=== PATIENT | female | born 1965 | race Caucasian/White ===

== ENCOUNTER 2020-04-21 13:00 | Outpatient (REF) | payer BC, SELFPAY ==
--- NOTE | 2020-04-21 13:06 | MM_ITS ---
EXAMINATION: MM DIAGNOSTIC DIGITAL BREAST TOMOSYNTHESIS, BILATERAL CLINICAL INFORMATION: Due for yearly. Also follow-up probable benign calcifications upper outer and upper inner right breast. No family history breast cancer. The lifetime risk of breast cancer based on the Tyrer-Cuzick Model is 7%. COMPARISON: Mammography: 03/08/2019, 08/29/2018, 01/19/2018, 01/16/2018 (BI-RADS 0), 11/10/2016. TECHNIQUE: Digital breast tomosynthesis is performed in both the craniocaudal and mediolateral oblique views along with computer-aided detection (CAD). Synthesized 2D images are generated from the tomosynthesis. Additional left MLO, magnification right CC, magnification right ML views are obtained. FINDINGS: There are scattered areas of fibroglandular density (ACR BI-RADS breast composition Category b). Parenchymal pattern is similar to prior exams. There is no developing density or interval mass or architectural abnormality. The axilla and skin contours are unremarkable. Right breast calcifications for follow-up are stable from prior diagnostic studies. No increasing calcifications or pleomorphic types or ductal distribution. Results are provided to the patient at time of visit by the technologist. MM/MM tomosynthesis diagnostic BI IMPRESSION: 1. No mammographic evidence of malignancy. 2. Right breast calcifications for follow-up are stable from prior diagnostic exams and now considered to be benign. ASSESSMENT: BI-RADS 2: Benign RECOMMENDATION: Routine annual mammography screening. This patient's information was entered into a reminder system with a target due date for their next mammogram.
== END 2020-04-21 13:01 | disposition home or self-care (01) ==
LOC: HO.MAMMO 13:00
PROVIDERS: PCP Internal Medicine; Visit Provider Internal Medicine
DX: R92.1 Mammographic calcification found on diagnostic imaging of breast (principal); Z12.31 Encounter for screening mammogram for malignant neoplasm of breast
CPT/HCPCS: 77062; 77066

== ENCOUNTER 2021-04-23 13:36 | Outpatient (REF) | payer BC, SELFPAY ==
--- NOTE | ~2021-04-23 | MM_ITS ---
EXAMINATION: MM SCREENING DIGITAL BREAST TOMOSYNTHESIS, BILATERAL CLINICAL INFORMATION: Screening. Asymptomatic. The lifetime risk of breast cancer based on the Tyrer-Cuzick Model is 13%. COMPARISON: Mammography: 04/21/2020, 03/08/2019, 08/29/2018, 01/19/2018, 01/16/2018 TECHNIQUE: Digital breast tomosynthesis is performed in both the craniocaudal and mediolateral oblique views along with computer-aided detection (CAD). Synthesized 2D images are generated from the tomosynthesis. FINDINGS: There are scattered areas of fibroglandular density (ACR BI-RADS breast composition Category b). There are no significant masses, abnormal calcifications, or other abnormalities. No significant changes from prior exams. MM/MM tomosynthesis screening BI IMPRESSION: No mammographic evidence of malignancy. ASSESSMENT: BI-RADS 1: Negative RECOMMENDATION: Routine annual mammography screening. This patient's information was entered into a reminder system with a target due date for their next mammogram.
== END 2021-04-23 13:37 | disposition home or self-care (01) ==
LOC: HO.MAMMO 13:36
PROVIDERS: Visit Provider Internal Medicine
DX: Z12.31 Encounter for screening mammogram for malignant neoplasm of breast (principal)
CPT/HCPCS: 77063; 77067

== ENCOUNTER 2022-04-29 09:49 | Outpatient (REF) | payer BC, SELFPAY ==
--- NOTE | ~2022-04-29 | MM_ITS ---
EXAMINATION: MM SCREENING DIGITAL BREAST TOMOSYNTHESIS, BILATERAL CLINICAL INFORMATION: Screening. Asymptomatic. The lifetime risk of breast cancer based on the Tyrer-Cuzick Model is 13.6%. COMPARISON: Mammography: 04/23/2021 and studies dating back to 12/24/2007. TECHNIQUE: Digital breast tomosynthesis is performed in both the craniocaudal and mediolateral oblique views along with computer-aided detection (CAD). Synthesized 2D images are generated from the tomosynthesis. FINDINGS: The breasts are heterogeneously dense, which may obscure small masses (ACR BI-RADS breast composition Category c). There is essentially a stable parenchymal pattern bilaterally with a developing circumscribed density about the central aspect of the right breast approximately 4 cm from the nipple. This measures approximately 5 x 4 mm in size. Targeted ultrasound evaluation is recommended. MM/MM tomosynthesis screening BI IMPRESSION: Circumscribed developing right breast density for further evaluation with ultrasound. ASSESSMENT: BI-RADS 0: Incomplete - Need Additional Imaging Evaluation. RECOMMENDATION: Targeted right breast ultrasound. This patient's information was entered into a reminder system with a target due date for their next mammogram.
== END 2022-04-29 09:50 | disposition home or self-care (01) ==
LOC: HO.MAMMO 09:49
PROVIDERS: PCP Internal Medicine; Visit Provider Internal Medicine
DX: Z12.31 Encounter for screening mammogram for malignant neoplasm of breast (principal)
CPT/HCPCS: 77063; 77067

== ENCOUNTER 2022-05-04 15:14 | Outpatient (REF) | payer BC, SELFPAY ==
--- NOTE | ~2022-05-04 | US_ITS ---
EXAMINATION: US DIAGNOSTIC ULTRASOUND BREAST, RIGHT CLINICAL INFORMATION: Recall from screening for small circumscribed nodule central anterior breast approximately 5 x 4 mm. COMPARISON: Mammography 04/29/2022, 04/23/2021, 04/21/2020. TECHNIQUE: Ultrasound right breast is targeted to the upper anterior breast. FINDINGS: There is a benign simple cyst 12:00 position approximately 2 cm from nipple measuring 4 x 3 mm. Corresponding to finding on mammography. There is mild increased through-transmission of sound and no associated color flow. No solid mass or architectural abnormality. Results are discussed with the patient at time of visit. US/US breast RT limited IMPRESSION: -Small simple cyst 12:00 position corresponding to finding on mammography. ASSESSMENT: BI-RADS 2: Benign RECOMMENDATION: Routine annual mammography screening. This patient's information was entered into a reminder system with a target due date for their next mammogram.
== END 2022-05-04 15:15 | disposition home or self-care (01) ==
LOC: HO.MAMMO 15:14
PROVIDERS: PCP Internal Medicine; Visit Provider Internal Medicine
DX: R92.2 Inconclusive mammogram (principal)
CPT/HCPCS: 76642

== ENCOUNTER → 2022-08-18 15:12 | Outpatient (BNVA) | payer BC, SELFPAY | PROVIDERS: PCP Internal Medicine; Visit Provider Internal Medicine | DX: Z13.89 Encounter for screening for other disorder (principal) ==

== ENCOUNTER → 2023-05-04 08:30 | Outpatient (BNV) | payer OTHER, SELFPAY | PROVIDERS: PCP Internal Medicine; Visit Provider Radiology Diagnostic Radiology | DX: Z12.31 Encounter for screening mammogram for malignant neoplasm of breast (principal) | CPT/HCPCS: 77063; 77067 ==

== ENCOUNTER 2023-05-04 08:56 | Outpatient (REF) | payer OTHER, SELFPAY | END 2023-05-04 08:57 | disposition home or self-care (01) | LOC: HO.MAMMO 08:56 | PROVIDERS: PCP Internal Medicine; Visit Provider Internal Medicine | DX: Z12.31 Encounter for screening mammogram for malignant neoplasm of breast (principal) | CPT/HCPCS: 77063; 77067 ==

== ENCOUNTER 2023-06-06 12:23 | Outpatient (AMB) | payer OTHER, SELFPAY ==
[2023-06-06 12:30] VITALS: BP 134/68; PULSE 98; O2SAT 99; BMI 34.0
--- NOTE | 2023-06-06 12:30 | A.OFFPC_ITS ---
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: No Allergies cat dander Allergy (Unknown, Verified 06/06/23 12:31) itchy throat house dust Allergy (Unknown, Verified 06/06/23 12:31) itchy throat Medication List - Last Reconciled 06/06/23 by Rosalie Carroll MD ascorbate calcium (vitamin C) 500 mg PO DAILY cholecalciferol (vitamin D3) 25 mcg PO DAILY fluticasone propionate 50 mcg/actuation 2 sprays intranasal DAILY loratadine-pseudoephedrine 5-120 mg ER (Claritin-D 12 Hour) 1 tab PO Q12H peg 3350-electrolytes 236-22.74-6.74 -5.86 gram (Golytely) 240 mL PO Q10M Tobacco use date assessed: 06/06/23 Dental Screening Dental Screen Date: 06/06/23 Did you have a dental visit in the last 12 months?: Yes Did you have a dental problem in the last 6 months where you did not have access to dental care?: No Was dental information given to patient?: Patient has dentist HPI Annual Exam HPI Details 58-year-old obese female with a history of iron deficiency anemia GERD tubular adenoma of the colon mixed incontinence coming in for physical exam last seen in May 2022 for physical exam. 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 Patient's last blood work was done in September 2022 follow-up blood work for elevated liver function test. With that blood work last May noted elevated blood sugar at 101 with no anemia. patient seperated recently, no insurance. divorce process. 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 will be refer to urology. has some situational depression but declined referral for counselling [facility] Medical History (Updated 06/06/23 @ 12:58 by Rosalie Carroll MD) Fracture of thumb, left, closed Obesity (BMI 30-39.9) Vitamin D deficiency GERD (gastroesophageal reflux disease) Iron deficiency anemia Surgical History (Updated 04/28/20 @ 07:24 by Reny Giron) History of tonsillectomy History of tubal ligation Family History (Updated 06/02/22 @ 12:48 by Rosalie Carroll MD) Father Lung cancer Smoker Mother Acute CVA (cerebrovascular accident) Diabetes H/O cardiac radiofrequency ablation Sister Diabetes Myocardial infarction Breast cancer Sister No problems noted. Brother Myocardial infarction Social History (Updated 01/30/21 @ 16:52 by Rosalie Carroll MD) Housing: House Alcohol intake: never Patient Tobacco Use Status: Former Tobacco user Years Smoked: stopped 1985 e-Cigarette/Vaping Use: Never Used Second Hand Smoke Exposure: No Current occupational status: employed Cognitive needs: No Hearing needs: No Vision needs: Yes Questionnaire PHQ-9 Over the last 2 weeks, how often have you been bothered by any of the following problems? 1. Little interest or pleasure in doing things: not at all 2. Feeling down, depressed, or hopeless: not at all 3. Trouble falling or staying asleep, or sleeping too much: not at all 4. Feeling tired or having little energy: not at all 5. Poor appetite or overeating: not at all 6. Feeling bad about yourself - or that you are a failure or have let yourself or your family down: not at all 7. Trouble concentrating on things, such as reading the newspaper or watching television: not at all 8. Moving or speaking so slowly that other people could have noticed. Or the opposite - being so fidgety or restless that you have been moving around a lot more than usual: not at all 9. Thoughts that you would be better off or of hurting yourself in some way: not at all Total score: 0 Depression Screening Interpretation: Negative Depression Screening Done: Yes Source: Developed by Drs. Bradley Ford, Marina Yu, Antoine Young and colleagues, with an educational vianney from [employer]. Thrive Questionnaire Date Thrive assessed: 06/02/22 AUDIT C Alcohol Use Questionnaire (AUDIT-C) 1. How often do you have a drink containing alcohol?: Monthly or less 2. How many drinks containing alcohol do you have on a typical day when you are drinking?: 1 or 2 3. How often do you have six or more drinks on one occasion?: Never Total Score: 1 ZITA-7 AMB Questionnaire ZITA-7 Date ZITA - 7 assessed: 06/06/23 Feeling nervous, anxious, or on edge: 0 = Not at all Not being able to stop or control worryin = Not at all Worrying too much about different things: 0 = Not at all Trouble relaxin = Not at all Being so restless that it is hard to sit still: 0 = Not at all Becoming easily annoyed or irritable: 0 = Not at all Feeling afraid as if something awful might happen: 0 = Not at all Total ZITA-7 score (0-4 normal; 5-9 mild; 10-14 moderate; 15-21 severe): 0 Source: Developed by Drs. Bradley Ford, Marina Yu, Antoine Young and colleagues, with an educational vianney from [employer]. Review of Systems Const Denies poor appetite and Denies weakness Eyes Denies no additional complaints ENT Reports Normal hearing present, Denies dizziness, Denies nasal congestion, Denies tinnitus and Denies sore throat Card Denies chest pain, Denies syncope, Denies rapid heart rate and Denies dyspnea Resp Denies cough and Denies dyspnea GI Denies change in stool character, Reports constipation, Denies diarrhea, Denies nausea and Denies vomiting Denies urinary frequency, Denies difficulty voiding and Denies dysuria Neuro Reports Normal hearing present, Denies confusion, Denies dizziness, Denies syncope and Denies weakness Psych Denies confusion Physical exam (Primary Care) Vital Signs: Last Vital Signs Pulse 98 06/06/23 12:30 BP 134/68 06/06/23 12:30 Pulse Ox 99 06/06/23 12:30 Oxygen Delivery Method Room Air 06/06/23 12:30 BMI result Body Mass Index 34.0 Tobacco/Smoking Status: Tobacco use Status Tobacco use date assessed 06/06/23 06/06/23 12:32 Patient Tobacco Use Status Former Tobacco user 06/06/23 12:32 e-Cigarette/Vaping Use Never Used 06/06/23 12:32 PHQ-9: PHQ-9 Score PHQ-9: Total score 0 06/06/23 12:34 Depression Screening Interpretation: Negative Thrive Assessment: Date of Thrive Assessment Date Thrive assessed 06/02/22 06/06/23 12:32 Const General: No confusion Orientation/consciousness: No confusion HENMT Head: Yes normocephalic Ears: external ears normal and TM's normal bilaterally Face and sinus: Yes normal facial exam Mouth: moist mucous membranes Throat: Yes tonsils normal Eyes Conjunctivae: conjunctivae normal Pupils: Equal, round and reactive pupils present and Pupil accommodation reflex normal Direct Ophthalmoscopy: normal light reflex Neck Neck: No lymphadenopathy Thyroid: Thyroid normal Chest Chest palpation & inspection: normal inspection of the chest Resp Effort & Inspection: normal respiratory effort and no audible wheezes Auscultation: clear to auscultation bilaterally, no crackles, no wheezes and lung sounds not diminished Cardio Rate: regular rate Rhythm: regular rhythm Peripheral pulses: radial pulses present and dorsalis pedis present GI Other: guaiac negative Palpation (GI): no masses Auscultation: normal bowel sounds and normoactive bowel sounds Skin General skin exam: no rashes or lesions noted Rashes: no rashes Neuro General: No confusion Cranial nerves: Yes Equal, round and reactive pupils present and Yes Normal hearing present Cognition (Neuro): normal cognition Gait exam (Neuro): Normal gait present Motor exam (neuro): 5/5 motor strength present throughout Deep tendon reflexes (DTR's): Right brachioradialis reflex intensity grade: 2+, Left brachioradialis reflex intensity grade: 2+, Right patellar reflex intensity grade: 2+ and Left patellar reflex intensity grade: 2+ Extrem General: No edema Assessment and Plan Assessment & Plan (1) Annual physical exam: Code(s): Z00.00 - Encounter for general adult medical examination without abnormal findings (2) Obesity (BMI 30-39.9): Code(s): E66.9 - Obesity, unspecified Plan: Diet and exercise (3) GERD (gastroesophageal reflux disease): Comment: 13-year-old gastritis Code(s): K21.9 - Gastro-esophageal reflux disease without esophagitis Plan: GERD plan (4) Tubular adenoma of colon: Code(s): D12.6 - Benign neoplasm of colon, unspecified Plan: Patient has met with Gastroenterology and awaiting schedule (5) Impaired glucose tolerance: Code(s): R73.02 - Impaired glucose tolerance (oral) Plan: Decrease the amount of carbohydrate intake, pasta, bread, rice and potatoes are all sugar and that is aside from all the sweet stuff, remember that fruits are good but they are Sweet also. (6) Mixed incontinence: Code(s): N39.46 - Mixed incontinence (7) Onychomycosis: Code(s): B35.1 - Tinea unguium Orders: Orders Hemoglobin A1c Today R73.02 - Impaired glucose tolerance (oral) Complete Blood Count Auto Diff Today D50.9 - Iron deficiency anemia, unspecified IRON PROFILE Today D50.9 - Iron deficiency anemia, unspecified Vitamin B12 and Folate Today D50.9 - Iron deficiency anemia, unspecified Vitamin D 25-OH Total Today K21.9 - Gastro-esophageal reflux disease without esophagitis Lipid Panel Today E78.00 - Pure hypercholesterolemia, unspecified, K21.9 - Gastro-esophageal reflux disease without esophagitis Thyroid Stimulating Hormone Today K21.9 - Gastro-esophageal reflux disease without esophagitis Comprehensive Met. Panel Today R73.02 - Impaired glucose tolerance (oral) Ferritin Today D50.9 - Iron deficiency anemia, unspecified Reticulocyte Count Today D50.9 - Iron deficiency anemia, unspecified Free T4 (Free Thyroxine) Today K21.9 - Gastro-esophageal reflux disease without esophagitis Medications: New terbinafine HCl 250 mg PO DAILY 12 weeks 84 tabs 1RF B35.1 - Tinea unguium Coding Level of Care Code Est Pt Prev Care 40-64y(55374) Diagnoses Annual physical exam Z00.00 Obesity (BMI 30-39.9) E66.9 GERD (gastroesophageal reflux disease) K21.9 Tubular adenoma of colon D12.6 Impaired glucose tolerance R73.02 Mixed incontinence N39.46 Onychomycosis B35.1
== END 2023-06-06 13:10 | disposition home or self-care (01) ==
PROVIDERS: Visit Provider Internal Medicine
DX: Z00.00 Encounter for general adult medical examination without abnormal findings (principal); E66.9 Obesity, unspecified; Z68.34 Body mass index [BMI] 34.0-34.9, adult; K21.9 Gastro-esophageal reflux disease without esophagitis; D12.6 Benign neoplasm of colon, unspecified; R73.02 Impaired glucose tolerance (oral); N39.46 Mixed incontinence; B35.1 Tinea unguium
CPT/HCPCS: 99396

== ENCOUNTER 2023-09-28 10:03 | Outpatient (AMB) | payer OTHER, SELFPAY ==
[2023-09-28 10:06] VITALS: BP 134/68; PULSE 92; O2SAT 97; BMI 34.4
--- NOTE | 2023-09-28 10:06 | MHC.PC.OV ---
Vital Signs 09/28/23 10:06 Height 5 ft 2 in Weight 188 lb BMI 34.4 BP 134/68 Blood Pressure Location Lt brachial Position Sitting Pulse 92 Pulse Source Pulse Oximeter Pulse Oximetry (%) 97 Oxygen Delivery Method Room Air Intake Visit Reasons: Sinus infection Allergies cat dander Allergy (Unknown, Verified 09/28/23 10:07) itchy throat house dust Allergy (Unknown, Verified 09/28/23 10:07) itchy throat Medication List - Last Reconciled 09/28/23 by Rosalie Carroll MD amoxicillin-pot clavulanate 875-125 mg 1 tab PO BID ascorbate calcium (vitamin C) 500 mg PO DAILY cholecalciferol (vitamin D3) 25 mcg PO DAILY fluticasone propionate 50 mcg/actuation 2 sprays intranasal DAILY loratadine-pseudoephedrine 5-120 mg ER (Claritin-D 12 Hour) 1 tab PO Q12H peg 3350-electrolytes 236-22.74-6.74 -5.86 gram (Golytely) 240 mL PO Q10M terbinafine HCl 250 mg PO DAILY 12 weeks Tobacco use date assessed: 06/06/23 Dental Screening Dental Screen Date: 09/28/23 Did you have a dental visit in the last 12 months?: Yes Did you have a dental problem in the last 6 months where you did not have access to dental care?: No Was dental information given to patient?: Patient has dentist HPI Sinus infection HPI Details 58-year-old obese female with impaired glucose tolerance GERD last seen in May 2023 coming in for an urgent visit. congestion 2months, congestion, takes mucinex congestion PFSH Medical History (Updated 09/28/23 @ 10:20 by Rosalie Carroll MD) Fracture of thumb, left, closed Obesity (BMI 30-39.9) Vitamin D deficiency GERD (gastroesophageal reflux disease) Iron deficiency anemia Surgical History (Updated 04/28/20 @ 07:24 by Reny Giron) History of tonsillectomy History of tubal ligation Family History (Updated 06/02/22 @ 12:48 by Rosalie Carroll MD) Father Lung cancer Smoker Mother Acute CVA (cerebrovascular accident) Diabetes H/O cardiac radiofrequency ablation Sister Diabetes Myocardial infarction Breast cancer Sister No problems noted. Brother Myocardial infarction Social History (Updated 01/30/21 @ 16:52 by Rosalie Carroll MD) Housing: House Alcohol intake: never Patient Tobacco Use Status: Former Tobacco user Tobacco use type: Cigarette Years Smoked: stopped 1986 e-Cigarette/Vaping Use: Never Used Second Hand Smoke Exposure: No Current occupational status: employed Cognitive needs: No Hearing needs: No Vision needs: Yes Questionnaire PHQ-9 Over the last 2 weeks, how often have you been bothered by any of the following problems? 1. Little interest or pleasure in doing things: not at all 2. Feeling down, depressed, or hopeless: not at all 3. Trouble falling or staying asleep, or sleeping too much: not at all 4. Feeling tired or having little energy: not at all 5. Poor appetite or overeating: not at all 6. Feeling bad about yourself - or that you are a failure or have let yourself or your family down: not at all 7. Trouble concentrating on things, such as reading the newspaper or watching television: not at all 8. Moving or speaking so slowly that other people could have noticed. Or the opposite - being so fidgety or restless that you have been moving around a lot more than usual: not at all 9. Thoughts that you would be better off or of hurting yourself in some way: not at all Total score: 0 Depression Screening Interpretation: Negative Depression Screening Done: Yes Source: Developed by Drs. Bradley Ford, Marina Yu, Antoine Young and colleagues, with an educational vianney from [employer]. Thrive Questionnaire Date Thrive assessed: 09/28/23 I am a: Patient What is your living situation today?: I have a steady place to live Within the past 12 months, did the food you bought not last and you didn't have the money to get more?: Never true Within the past 12 months, did you worry whether your food would run out before you got money to buy more?: Never true Do you have trouble paying for medicines?: No Do you have trouble getting transportation to medical appointments?: No Do you have trouble paying your heating and electricity bill?: No Do you have trouble taking care of your child, family member or friend?: No Do you have trouble with day-to-day activities such as bathing, preparing meals, shopping, managing finances, etc.?: No Are you currently unemployed and looking for a job?: No Are you interested in more education?: No Currently or been in a relationship where the following occur: no concerns reported THRIVE Score: 0 AUDIT C Alcohol Use Questionnaire (AUDIT-C) 1. How often do you have a drink containing alcohol?: Monthly or less 2. How many drinks containing alcohol do you have on a typical day when you are drinking?: 1 or 2 3. How often do you have six or more drinks on one occasion?: Never Total Score: 1 ZITA-7 AMB Questionnaire ZITA-7 Date ZITA - 7 assessed: 06/06/23 Source: Developed by Drs. Bradley Ford, Marina Yu, Antoine Young and colleagues, with an educational vianney from [employer]. Physical exam (Primary Care) Vital Signs: Last Vital Signs Pulse 92 09/28/23 10:06 BP 134/68 09/28/23 10:06 Pulse Ox 97 09/28/23 10:06 Oxygen Delivery Method Room Air 09/28/23 10:06 BMI result Body Mass Index 34.4 Tobacco/Smoking Status: Tobacco use Status Tobacco use date assessed 06/06/23 09/28/23 10:13 Patient Tobacco Use Status Former Tobacco user 09/28/23 10:13 Tobacco use type Cigarette 09/28/23 10:13 e-Cigarette/Vaping Use Never Used 09/28/23 10:13 PHQ-9: PHQ-9 Score PHQ-9: Total score 0 09/28/23 10:18 Depression Screening Interpretation: Negative Thrive Assessment: Date of Thrive Assessment Date Thrive assessed 09/28/23 09/28/23 10:13 Currently or been in a relationship where the following occur: no concerns reported Const General: alert; No acute distress Eyes Conjunctivae: conjunctivae normal Resp Auscultation: clear to auscultation bilaterally Cardio Rate: regular rate Rhythm: regular rhythm GI Inspection: Yes normal to inspection Extrem General: Yes normal to inspection and No edema Assessment and Plan Assessment & Plan (1) Sinusitis: Code(s): J32.9 - Chronic sinusitis, unspecified Plan: antibiotic prescription sent and astepro samples sent Medications: New amoxicillin-pot clavulanate 875-125 mg 1 tab PO BID 20 tabs 0RF J32.9 - Chronic sinusitis, unspecified Coding Level of Care Code Est Pt Level 3 (19176) Diagnoses Sinusitis J32.9
== END 2023-09-28 10:34 | disposition home or self-care (01) ==
PROVIDERS: PCP Internal Medicine; Visit Provider Internal Medicine
DX: J32.9 Chronic sinusitis, unspecified (principal)
CPT/HCPCS: 99213

== ENCOUNTER 2024-05-08 08:15 | Outpatient (REF) | payer OTHER, SELFPAY | END 2024-05-08 08:16 | disposition home or self-care (01) | LOC: HO.MAMMO 08:15 | PROVIDERS: Absent Provider Obstetrics & Gynecology; PCP Internal Medicine; Visit Provider Internal Medicine | DX: Z12.31 Encounter for screening mammogram for malignant neoplasm of breast (principal) | CPT/HCPCS: 77063; 77067 ==

== ENCOUNTER → 2024-05-08 08:30 | Outpatient (BNV) | payer OTHER, SELFPAY | PROVIDERS: Absent Provider Obstetrics & Gynecology; PCP Internal Medicine; Visit Provider Internal Medicine | DX: Z12.31 Encounter for screening mammogram for malignant neoplasm of breast (principal) | CPT/HCPCS: 77063; 77067 ==

== ENCOUNTER 2024-06-07 12:23 | Outpatient (AMB) | payer OTHER, SELFPAY ==
--- NOTE | 2024-06-07 12:28 | A.OFFPC_ITS ---
Vital Signs 06/07/24 12:30 Height 5 ft 2 in Weight 185 lb BMI 33.8 BP 120/68 Blood Pressure Location Lt brachial Position Sitting Pulse 86 Pulse Source Pulse Oximeter Pulse Oximetry (%) 97 Oxygen Delivery Method Room Air Intake Visit Reasons: pe Intake Note: Patient here for a physical exam Ski Maker [place] Required: No Accompanied by: Self / Same As Patient Allergies cat dander Allergy (Unknown, Verified 06/07/24 12:32) itchy throat house dust Allergy (Unknown, Verified 06/07/24 12:32) itchy throat Medication List - Last Reconciled 06/07/24 by Rosalie Carroll MD ascorbate calcium (vitamin C) 500 mg PO DAILY cholecalciferol (vitamin D3) 25 mcg PO DAILY Tobacco use date assessed: 06/07/24 Dental Screening Dental Screen Date: 06/07/24 Did you have a dental visit in the last 12 months?: No Did you have a dental problem in the last 6 months where you did not have access to dental care?: No Was dental information given to patient?: Patient has dentist HPI pe HPI Details The patient is a 59-year-old female presenting with diarrhea, headaches, sinus congestion, and concerns related to weight management. She re ports experiencing a stomach bug several days ago, but she did not have vomiting; however, she did have diarrhea. She experienced chills and headaches during that period but currently denies any fever. The diarrhea has resolved, though she is taking precautions with her diet to prevent its recurrence. The patient has been facing recurring headaches and suspects they may be related to sinus congestion, though no formal diagnosis has been made. The patient's family history includes a father with lung cancer and a brother who suffered a heart attack. Another female relative had kidney issues in the past, which led to significant weight loss. The patient herself has a history of consuming a healthy diet and strives to manage her weight effectively. The patient underwent a mammogram on June 08, but it was deemed incomplete, and she is scheduled for further imaging of the right breast on June 20. There is an upcoming colonoscopy, pending insurance confirmation. She is mindful of staying hydrated, consuming vitamin D and C supplements, and maintaining a healthy balance of food intake despite a recent dip in appetite and energy levels. The patient was concerned about potential anemia but had no recent blood work done to confirm this suspicion. - Follows a healthy diet, high in hydrat ion and adjusted to manage diarrhea - Scheduled mammogram follow-up for kristi t breast imaging - Pending colonoscopy scheduling - Vitamin D and C supplementation - No current vaccination updates discuss ed - Marital status: - No alcohol consumption - Former smoker, currently abstaining - Active attempts to manage weight and d iet - Experiences difficulty with sleep, pot entially insomnia - High fluid intake preferred, often dri nks several bottles of water daily - Occupation not explicitly mentioned - Skepticism concerning weight loss and emotional well-being with stress patterns - Gastrointestinal: Reports previous jaz rrhea, denies current nausea or vomiting - Neurological: Reports headaches, insom raphael - Respiratory: Denies shortness of breat h, chest pains, ongoing respiratory issues - Cardiovascular: Denies dizziness, sync ope, heartburn present but not weekly - Genitourinary: Denies nocturia - Ophthalmology: Recent regular eye exam , reports no specific issues besides common headaches PFSH Medical History (Updated 09/28/23 @ 10:20 by Rosalie Carroll MD) Fracture of thumb, left, closed Obesity (BMI 30-39.9) Vitamin D deficiency GERD (gastroesophageal reflux disease) Iron deficiency anemia Surgical History History of tonsillectomy History of tubal ligation Family History (Updated 06/07/24 @ 12:43 by Rosalie Carroll MD) Father Lung cancer Smoker Mother Acute CVA (cerebrovascular accident) Diabetes H/O cardiac radiofrequency ablation Sister Diabetes Breast cancer Paget's disease of bone Sister No problems noted. Brother Myocardial infarction Social History Housing: House Alcohol intake: never Patient Tobacco Use Status: Former Tobacco user Tobacco use type: Cigarette Years Smoked: stopped 1985 e-Cigarette/Vaping Use: Never Used Second Hand Smoke Exposure: No service: No Current occupational status: employed Current occupational exposures/hazards: No Cognitive needs: No Hearing needs: No Vision needs: Yes Questionnaire PHQ-9 Over the last 2 weeks, how often have you been bothered by any of the following problems? 1. Little interest or pleasure in doing things: not at all 2. Feeling down, depressed, or hopeless: not at all 3. Trouble falling or staying asleep, or sleeping too much: several days 4. Feeling tired or having little energy: not at all 5. Poor appetite or overeating: not at all 6. Feeling bad about yourself - or that you are a failure or have let yourself or your family down: not at all 7. Trouble concentrating on things, such as reading the newspaper or watching television: not at all 8. Moving or speaking so slowly that other people could have noticed. Or the opposite - being so fidgety or restless that you have been moving around a lot more than usual: not at all 9. Thoughts that you would be better off or of hurting yourself in some way: not at all Total score: 1 Source: Developed by Drs. Bradley Ford, Marina Yu, Antoine Young and colleagues, with an educational vianney from [employer]. Thrive Questionnaire Date Thrive assessed: 06/07/24 I am a: Patient What is your living situation today?: I have a steady place to live Within the past 12 months, did the food you bought not last and you didn't have the money to get more?: Never true Within the past 12 months, did you worry whether your food would run out before you got money to buy more?: Never true Do you have trouble paying for medicines?: No Do you have trouble getting transportation to medical appointments?: No Do you have trouble paying your heating and electricity bill?: No Do you have trouble taking care of your child, family member or friend?: No Do you have trouble with day-to-day activities such as bathing, preparing meals, shopping, managing finances, etc.?: No Are you currently unemployed and looking for a job?: No Are you interested in more education?: No Please select the resources that you would like help with: None Currently or been in a relationship where the following occur: No concerns reported THRIVE Score: 0 AUDIT C Alcohol Use Questionnaire (AUDIT-C) 1. How often do you have a drink containing alcohol?: Never Total Score: 0 ZITA-7 AMB Questionnaire ZITA-7 Date ZITA - 7 assessed: 06/07/24 Feeling nervous, anxious, or on edge: 0 = Not at all Not being able to stop or control worryin = Not at all Worrying too much about different things: 0 = Not at all Trouble relaxin = Not at all Being so restless that it is hard to sit still: 0 = Not at all Becoming easily annoyed or irritable: 0 = Not at all Feeling afraid as if something awful might happen: 0 = Not at all Total ZITA-7 score (0-4 normal; 5-9 mild; 10-14 moderate; 15-21 severe): 0 Source: Developed by Drs. Bradley Ford, Marina Yu, Antoine Young and colleagues, with an educational vianney from [employer]. Review of Systems Const Denies poor appetite and Denies weakness Eyes Denies no additional complaints ENT Reports Normal hearing present, Denies dizziness, Denies nasal congestion, Denies tinnitus and Denies sore throat Card Denies chest pain, Denies syncope, Denies rapid heart rate and Denies dyspnea Resp Denies cough and Denies dyspnea GI Denies change in stool character, Reports constipation, Denies diarrhea, Denies nausea and Denies vomiting Denies urinary frequency, Denies difficulty voiding and Denies dysuria Neuro Reports Normal hearing present, Denies confusion, Denies dizziness, Denies syncope and Denies weakness Psych Denies confusion Physical exam (Primary Care) Vital Signs: Last Vital Signs Pulse 86 06/07/24 12:30 BP 120/68 06/07/24 12:30 Pulse Ox 97 06/07/24 12:30 Oxygen Delivery Method Room Air 06/07/24 12:30 BMI result Body Mass Index 33.8 Tobacco/Smoking Status: Tobacco use Status Tobacco use date assessed 06/07/24 06/07/24 12:35 Patient Tobacco Use Status Former Tobacco user 06/07/24 12:35 Tobacco use type Cigarette 06/07/24 12:35 e-Cigarette/Vaping Use Never Used 06/07/24 12:35 PHQ-9: PHQ-9 Score PHQ-9: Total score 1 06/07/24 12:40 Thrive Assessment: Date of Thrive Assessment Date Thrive assessed 06/07/24 06/07/24 12:35 Currently or been in a relationship where the following occur: No concerns reported Const General: No confusion Orientation/consciousness: No confusion HENMT Head: Yes normocephalic Ears: external ears normal and TM's normal bilaterally Face and sinus: Yes normal facial exam Mouth: moist mucous membranes Throat: Yes tonsils normal Eyes Conjunctivae: conjunctivae normal Pupils: Equal, round and reactive pupils present and Pupil accommodation reflex normal Direct Ophthalmoscopy: normal light reflex Neck Neck: No lymphadenopathy Thyroid: Thyroid normal Chest Chest palpation & inspection: normal inspection of the chest Resp Effort & Inspection: normal respiratory effort and no audible wheezes Auscultation: clear to auscultation bilaterally, no crackles, no wheezes and lung sounds not diminished Cardio Rate: regular rate Rhythm: regular rhythm Peripheral pulses: radial pulses present and dorsalis pedis present GI Palpation (GI): no masses Auscultation: normal bowel sounds and normoactive bowel sounds Rectal Exam - Female: deferred Skin General skin exam: no rashes or lesions noted Rashes: no rashes Neuro General: No confusion Cranial nerves: Yes Equal, round and reactive pupils present and Yes Normal hearing present Cognition (Neuro): normal cognition Gait exam (Neuro): Normal gait present Motor exam (neuro): 5/5 motor strength present throughout Deep tendon reflexes (DTR's): Right brachioradialis reflex intensity grade: 2+, Left brachioradialis reflex intensity grade: 2+, Right patellar reflex intensity grade: 2+ and Left patellar reflex intensity grade: 2+ Extrem General: No edema Coding Level of Care Code Est Pt Prev Care 40-64y(39398) Diagnoses Annual physical exam Z00.00 Obesity (BMI 30-39.9) E66.9 GERD (gastroesophageal reflux disease) K21.9 Iron deficiency anemia D50.9 Tubular adenoma of colon D12.6 Impaired glucose tolerance R73.02 Assessment & Plan Assessment & Plan (1) Annual physical exam: Code(s): Z00.00 - Encounter for general adult medical examination without abnormal findings Category: Medical (2) Obesity (BMI 30-39.9): Code(s): E66.9 - Obesity, unspecified Category: Medical (3) GERD (gastroesophageal reflux disease): Comment: 13-year-old gastritis Code(s): K21.9 - Gastro-esophageal reflux disease without esophagitis Category: Medical (4) Iron deficiency anemia: Code(s): D50.9 - Iron deficiency anemia, unspecified Category: Medical (5) Tubular adenoma of colon: Code(s): D12.6 - Benign neoplasm of colon, unspecified Category: Medical (6) Impaired glucose tolerance: Code(s): R73.02 - Impaired glucose tolerance (oral) Category: Medical Plan - Fasting blood work ordered to check for potential anemia and other basal metabolic panel tests - Referral to tip inserter for colonoscopy scheduling - Follow-up for mammogram results and assessment after new imaging to rule out breast concerns - Recommendation for adequate hydration and balanced diet to manage gastrointestinal symptoms - Monitor weight levels and emotional stress that could contribute to physical symptoms - Encouragement to continue vitamin supplementation and maintain healthy lifestyle practices During our discussion, I addressed the patient's symptoms and the importance of maintaining her current health practices. We discussed the likely infectious origin of her gastrointestinal discomfort and potential postnasal drip contributing to her headaches. Vitamin deficiencies, especially due to eating patterns, were considered, thus reinforcing the importance of the scheduled blood work. I explained the ongoing need to monitor her breast health through scheduled mammograms and address the incomplete imaging. Colonoscopy referrals were outlined as a priority following insurance verification. We outlined preventative strategies against the flu, COVID-19, and RSV to promote long-term respiratory health. - Maintain a balanced diet and modify food intake if gastrointestinal symptoms reappear - Continue with current vitamin D and C supplements - Monitor for any new or worsening symptoms, especially headaches and gastrointestinal issues - Stay hydrated with adequate water consumption daily - Attend scheduled mammogram follow-up on June 20 - Await scheduling for a colonoscopy appointment - Complete fasting blood work as scheduled - Routine preventive measures against flu, COVID-19, and RSV are advised - Return for follow-up appointments and contact me if there are any concerns or changes in symptoms Orders: Orders Comprehensive Met. Panel Today D50.9 - Iron deficiency anemia, unspecified Ferritin Today D50.9 - Iron deficiency anemia, unspecified Lipid Panel Today D50.9 - Iron deficiency anemia, unspecified, E78.00 - Pure hypercholesterolemia, unspecified Thyroid Stimulating Hormone Today D50.9 - Iron deficiency anemia, unspecified Vitamin B12 and Folate Today D50.9 - Iron deficiency anemia, unspecified Reticulocyte Count Today D50.9 - Iron deficiency anemia, unspecified Complete Blood Count Auto Diff Today D50.9 - Iron deficiency anemia, unspecified IRON PROFILE Today D50.9 - Iron deficiency anemia, unspecified Free T4 (Free Thyroxine) Today D50.9 - Iron deficiency anemia, unspecified Hemoglobin A1c Today D50.9 - Iron deficiency anemia, unspecified Vitamin D 25-OH Total Today D50.9 - Iron deficiency anemia, unspecified Referrals Gastroenterology Referral D12.6 - Benign neoplasm of colon, unspecified
[2024-06-07 12:30] VITALS: BP 120/68; PULSE 86; O2SAT 97; BMI 33.8
== END 2024-06-07 13:03 | disposition home or self-care (01) ==
PROVIDERS: PCP Internal Medicine; Visit Provider Internal Medicine
DX: Z00.00 Encounter for general adult medical examination without abnormal findings (principal); E66.9 Obesity, unspecified; Z68.33 Body mass index [BMI] 33.0-33.9, adult; K21.9 Gastro-esophageal reflux disease without esophagitis; D50.9 Iron deficiency anemia, unspecified; D12.6 Benign neoplasm of colon, unspecified; R73.02 Impaired glucose tolerance (oral)

== ENCOUNTER → 2024-06-07 12:23 | Outpatient (BNVA) | payer OTHER, SELFPAY | PROVIDERS: PCP Internal Medicine; Visit Provider Internal Medicine ==

== ENCOUNTER 2024-06-20 08:30 | Outpatient (REF) | payer OTHER, SELFPAY ==
--- NOTE | ~2024-06-20 | MM_ITS ---
EXAMINATION: MM DIAGNOSTIC DIGITAL BREAST TOMOSYNTHESIS, RIGHT Limited right breast ultrasound. CLINICAL INFORMATION: Family history of breast cancer including patient's sister in her 40s. Call back from screening for asymmetry in the medial right breast on CC view. COMPARISON: Mammography: Comparison is made with available prior examinations. TECHNIQUE: Digital breast tomosynthesis is performed in both the craniocaudal and mediolateral oblique views along with computer-aided detection (CAD). Synthesized 2D images are generated from the tomosynthesis. FINDINGS: There are scattered areas of fibroglandular density (ACR BI-RADS breast composition Category b). Area of asymmetry in the medial right breast posterior depth on CC view with questioned distortion partially effaces on additional imaging projections. No suspicious calcifications or other abnormal findings. Targeted color Doppler ultrasound scanning in the medial right breast from 1-4 o'clock demonstrates normal fibroglandular breast tissue. There is an incidental hypoechoic oval solid mass versus complicated cyst at 1:00 4 cm from nipple measuring 4 x 4 x 2 mm. MM/MM tomosynthesis added views R IMPRESSION: 1. Asymmetry medial right breast posterior depth with questioned distortion on CC view. Recommend 6 month follow-up mammography for further evaluation of stability. 2. Hypoechoic solid mass versus complicated cyst in the right breast at 1:00 4 7 m from the nipple. Recommend 6 month follow-up ultrasound for further evaluation of stability. 3. Given the above findings and family history of breast cancer. Recommend breast MRI with contrast at this time. The MRI would need to be ordered by the patient's providing clinician. ASSESSMENT: BI-RADS BI-RADS 3 - Probably benign finding(s) - 6 month follow-up suggested RECOMMENDATION: 6 Month F/U Results were provided to the patient at time of visit by the technologist. This patient's information was entered into a reminder system with a target due date for their next mammogram. Electronically signed by: Genevieve Russell DO 06/20/2024 10:49 AM JUSTIN
== END 2024-06-20 08:31 | disposition home or self-care (01) ==
LOC: HO.MAMMO 08:30
PROVIDERS: PCP Internal Medicine; Visit Provider Internal Medicine
DX: N64.89 Other specified disorders of breast (principal)
CPT/HCPCS: 76642; 77061; 77065

== ENCOUNTER 2024-12-05 08:32 | Outpatient (AMB) | payer OTHER, SELFPAY ==
[2024-12-05 08:36] VITALS: BP 132/80; PULSE 78; O2SAT 97; BMI 33.1
--- NOTE | 2024-12-05 08:36 | A.OFFPC_ITS ---
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 Accompanied by: Self / Same As Patient Allergies cat dander Allergy (Unknown, Verified 12/05/24 08:39) itchy throat house dust Allergy (Unknown, Verified 12/05/24 08:39) itchy throat Tobacco use date assessed: 06/07/24 Dental Screening Dental Screen Date: 06/07/24 [facility] Medical History (Updated 09/28/23 @ 10:20 by Rosalie Carroll MD) Fracture of thumb, left, closed Obesity (BMI 30-39.9) Vitamin D deficiency GERD (gastroesophageal reflux disease) Iron deficiency anemia Surgical History History of tonsillectomy History of tubal ligation Family History Father Lung cancer Smoker Mother Acute CVA (cerebrovascular accident) Diabetes H/O cardiac radiofrequency ablation Sister Diabetes Breast cancer Paget's disease of bone Sister No problems noted. Brother Myocardial infarction Social History Housing: House Alcohol intake: never Patient Tobacco Use Status: Former Tobacco user Tobacco use type: Cigarette Years Smoked: stopped 1985 e-Cigarette/Vaping Use: Never Used Second Hand Smoke Exposure: No service: No Current occupational status: employed Current occupational exposures/hazards: No Cognitive needs: No Hearing needs: No Vision needs: Yes Questionnaire Thrive Questionnaire Date Thrive assessed: 06/07/24 I am a: Patient What is your living situation today?: I have a steady place to live Within the past 12 months, did the food you bought not last and you didn't have the money to get more?: Never true Within the past 12 months, did you worry whether your food would run out before you got money to buy more?: Never true Do you have trouble paying for medicines?: No Do you have trouble getting transportation to medical appointments?: No Do you have trouble paying your heating and electricity bill?: No Do you have trouble taking care of your child, family member or friend?: No Do you have trouble with day-to-day activities such as bathing, preparing meals, shopping, managing finances, etc.?: No Are you currently unemployed and looking for a job?: No Are you interested in more education?: No Please select the resources that you would like help with: None Currently or been in a relationship where the following occur: No concerns reported THRIVE Score: 0 ZITA-7 AMB Questionnaire ZITA-7 Date ZITA - 7 assessed: 06/07/24 Source: Developed by Drs. Bradley Ford, Marina Yu, Antoine Young and colleagues, with an educational vianney from [employer]. Physical exam (Primary Care) Vital Signs: Last Vital Signs Pulse 78 12/05/24 08:36 BP 132/80 12/05/24 08:36 Pulse Ox 97 12/05/24 08:36 Oxygen Delivery Method Room Air 12/05/24 08:36 BMI result Body Mass Index 33.1 Tobacco/Smoking Status: Tobacco use Status Tobacco use date assessed 06/07/24 06/07/24 12:35 Patient Tobacco Use Status Former Tobacco user 06/07/24 12:35 Tobacco use type Cigarette 06/07/24 12:35 e-Cigarette/Vaping Use Never Used 06/07/24 12:35 Thrive Assessment: Date of Thrive Assessment Date Thrive assessed 06/07/24 06/07/24 12:35 Currently or been in a relationship where the following occur: No concerns reported Const General: alert; No acute distress Eyes Conjunctivae: conjunctivae normal Resp Auscultation: clear to auscultation bilaterally Cardio Rate: regular rate Rhythm: regular rhythm GI Inspection: Yes normal to inspection Extrem General: Yes normal to inspection and No edema Coding Level of Care Code Est Pt Level 4 (31543) Diagnoses Obesity (BMI 30-39.9) E66.9 Impaired glucose tolerance R73.02 GERD (gastroesophageal reflux disease) K21.9 Tubular adenoma of colon D12.6 Iron deficiency anemia D50.9 Assessment & Plan Assessment & Plan (1) Obesity (BMI 30-39.9): Code(s): E66.9 - Obesity, unspecified Category: Medical Plan: Diet and exercise (2) Impaired glucose tolerance: Code(s): R73.02 - Impaired glucose tolerance (oral) Category: Medical Plan: Decrease the amount of carbohydrate intake, pasta, bread, rice and potatoes are all sugar and that is aside from all the sweet stuff, remember that fruits are good but they are Sweet also. Awaiting blood work (3) GERD (gastroesophageal reflux disease): Comment: 13-year-old gastritis Code(s): K21.9 - Gastro-esophageal reflux disease without esophagitis Category: Medical Plan: Avoid the foods that causes that usually spicy foods, tomato products, juices, coffee, soda and foods that your sensitive to. After eating do not lie down, allow 3-4 hours before in lie down. And keep the head of bed above 30 degrees to avoid the acid from going up. (4) Tubular adenoma of colon: Code(s): D12.6 - Benign neoplasm of colon, unspecified Category: Medical Plan: Patient has remained about colonoscopy (5) Iron deficiency anemia: Code(s): D50.9 - Iron deficiency anemia, unspecified Category: Medical Plan: Awaiting blood work Plan History of Present Illness The patient is a 59-year-old female presenting for a follow-up visit and preventative care, including reminders for colonoscopy and mammogram. The patient has a history of iron deficiency anemia and tubular adenoma of the colon. She has been reminded to undergo a colonoscopy as part of her preventative care. The patient is obese and is actively working on weight management through dietary changes and increased physical activity. She incorporates more salads and grilled chicken into her diet and monitors her weight regularly. The patient is managing gastroesophageal reflux disease and is awaiting blood work to further assess her diabetes management plan. She has been advised to get blood work done, but the results are not yet available. Health Maintenance - Colonoscopy reminder for colon cancer screening - Mammogram scheduled for December 24 - Discussion on weight management through diet and exercise Social History - The patient is actively working on weight management through dietary changes and increased physical activity. - She incorporates salads, grilled chicken, and [place] yogurt into her diet. - The patient monitors her weight regularly and has been logging her dietary intake using an hyacinth. - She experiences stress and manages it by staying active and maintaining a positive outlook. Review of Systems - Gastrointestinal: Reports occasional stomach aches after consuming [place] yogurt. Denies diarrhea or stomach pains from milk. - Endocrine: Reports working on weight management and monitoring weight regularly. - Psychological: Reports experiencing stress but maintains a positive outlook. Physical Exam Results Plan The patient is advised to continue with her weight management plan, incorporating dietary changes and regular physical activity. She is reminded to undergo a colonoscopy for colon cancer screening and has a mammogram scheduled for December 24. The patient is awaiting blood work to further assess her diabetes management plan and gastroesophageal reflux disease. She is encouraged to continue monitoring her weight and dietary intake using an hyacinth. Patient was informed and verbally consented to the use of an ambient scribe for clinic note documentation during this visit. Discussion Notes I discussed with the patient the importance of continuing her weight management plan, including dietary changes and regular physical activity. We reviewed the need for a colonoscopy for colon cancer screening and confirmed her mammogram appointment for December 24. We are awaiting blood work results to further assess her diabetes management plan and gastroesophageal reflux disease. I encouraged her to continue monitoring her weight and dietary intake using an hyacinth. Patient Instructions - Continue with your weight management plan, focusing on dietary changes and regular physical activity. - Remember to undergo your scheduled colonoscopy and mammogram. - Await blood work results for further assessment of diabetes and reflux management. - Keep monitoring your weight and dietary intake using the hyacinth.
== END 2024-12-05 09:03 | disposition home or self-care (01) ==
LOC: HO.HMCH 08:33
PROVIDERS: PCP Internal Medicine; Visit Provider Internal Medicine
DX: R73.02 Impaired glucose tolerance (oral) (principal); E66.9 Obesity, unspecified; Z68.33 Body mass index [BMI] 33.0-33.9, adult; K21.9 Gastro-esophageal reflux disease without esophagitis; D12.6 Benign neoplasm of colon, unspecified; D50.9 Iron deficiency anemia, unspecified

== ENCOUNTER 2025-02-01 08:40 | Outpatient (REF) | payer OTHER, SELFPAY ==
--- NOTE | ~2025-02-01 | US_ITS ---
EXAMINATION: MM DIAGNOSTIC DIGITAL BREAST TOMOSYNTHESIS, BILATERAL CLINICAL INFORMATION: 6 month follow-up for asymmetry with questioned distortion medial right breast posterior depth on CC view without prior sonographic correlate. Patient has a family history of breast cancer including patient's sister. Breast MRI was recommended. Solid mass versus complicated cyst seen on ultrasound in the right breast 1:00 4 cm from the nipple. COMPARISON: Mammography: Comparison is made with relevant prior exams. TECHNIQUE: Digital breast mammography with tomosynthesis is performed in both the craniocaudal and mediolateral oblique views along with computer-aided detection (CAD). FINDINGS: There are scattered areas of fibroglandular density (ACR BI-RADS breast composition Category b). Right: Asymmetry with questioned distortion medial right breast on CC view posterior depth is not significantly changed from prior. No suspicious calcifications or other abnormal findings. Targeted color Doppler ultrasound again demonstrates a hypoechoic oval solid mass versus complicated cyst at 1:00 4 cm from the nipple measuring 4 x 4 x 3 mm. This is not significantly changed from prior. Left: No suspicious masses calcifications or other abnormal findings. Results are provided to the patient at time of visit by the technologist. US/US breast RT limited mamm only IMPRESSION: Left: Negative. Right: 1. Asymmetry medial breast posterior depth on CC view with questioned architectural distortion without prior sonographic correlate this is not significantly changed from prior. Stereotactic core needle biopsy was offered to the patient. The patient prefers six-month follow-up at this time. 2. Solid mass versus complicated cyst in the right breast at 1:00 4 cm from the nipple not significantly changed from prior. 6 month follow-up is recommended for further evaluation of stability. Breast MRI could be considered for further evaluation given patient's family history of breast cancer including sister. ASSESSMENT: BI-RADS BI-RADS 3 - Probably benign finding(s) - 6 month follow-up suggested RECOMMENDATION: 6 Month F/U This patient's information was entered into a reminder system with a target due date for their next mammogram. Electronically signed by: Genevieve Russell DO 02/01/2025 10:55 AM EDT
== END 2025-02-01 08:41 | disposition home or self-care (01) ==
LOC: HO.MAMMO 08:40
PROVIDERS: PCP Internal Medicine; Visit Provider Internal Medicine
DX: N64.89 Other specified disorders of breast (principal)
CPT/HCPCS: 76642; 77062; 77066

== ENCOUNTER → 2025-02-01 09:00 | Outpatient (BNV) | payer OTHER, SELFPAY | PROVIDERS: PCP Internal Medicine; Visit Provider Internal Medicine | DX: N63.11 Unspecified lump in the right breast, upper outer quadrant (principal); R92.323 Mammographic fibroglandular density, bilateral breasts | CPT/HCPCS: 76642; 77062; 77066 ==